=== PATIENT | male | born 1960 | race Caucasian/White ===

== ENCOUNTER 2019-02-08 11:00 | Emergency (ER) | payer SELFPAY ==
[~2019-02-08] VITALS: Ht 167.6 cm; Wt 78.0 kg
[2019-02-08 11:09] VITALS: BP 125/85
== END 2019-02-08 16:00 | disposition left against medical advice (07) ==
LOC: ER 11:55
DX: M79.671 Pain in right foot (principal); Z53.21 Procedure and treatment not carried out due to patient leaving prior to being seen by health care provider